=== PATIENT | female | born 1995 | race Hispanic/Latino ===

== ENCOUNTER 2020-08-26 15:17 | Emergency (ER) | payer MEDICAID, OTHER ==
[2020-08-26 15:52] LABS: APPEARANCE,URINE Clear (CLEAR); BILIRUBIN,URINE Negative (NEGATIVE); COLOR,URINE Yellow (YELLOW); GLUCOSE, URINE (UA) Negative (NEGATIVE); KETONES,URINE Negative (NEGATIVE); LEUKOCYTE ESTERASE ,URINE Negative (NEGATIVE); NITRATE,URINE Negative (NEGATIVE); OCCULT BLOOD,URINE Moderate (NEGATIVE); PROTEIN,URINE Negative (NEGATIVE); UROBILINOGEN,URINE 0.2 mg/dL (0.2-1.0)
[2020-08-26 15:57] LABS: HCG,QUAL RESULT NEGATIVE (NEGATIVE)
[2020-08-26 16:07] LABS: BASOPHILS % (AUTO) 0.9 % (0.0-5.0); EOSINOPHILS % (AUTO) 2.1 % (0.0-8.0); HEMATOCRIT 42.4 % (36-48); LYMPHOCYTES % (AUTO) 26.9 % (21.0-51.0); MEAN CORPUSCULAR HEMOGLOBIN 29.6 pg (27.0-33.0); MEAN CORPUSCULAR HGB CONC 32.3 g/dL (32.0-36.0); MEAN CORPUSCULAR VOLUME 91.6 fL (79-99); MONOCYTES % (AUTO) 8.4 % (3.0-13.0); NEUTROPHILS % (AUTO) 61.5 % (40.0-77.0); PLATELET COUNT (AUTO) 342 K/uL (130-400); RED BLOOD CELL COUNT(AUTO) 4.63 MIL/uL (4.00-5.50); RED CELL DISTRIBUTION WIDTH 12.6 % (11.0-15.5); WHITE BLOOD COUNT (AUTO) 6.6 K/uL (4.8-10.8)
[2020-08-26 16:08] LABS: BACTERIA,URINE Few /HPF (None Seen); WBC,URINE 0-1 /HPF (0-1)
[2020-08-26 16:22] LABS: CREATININE 0.8 mg/dL (0.5-1.5); POTASSIUM 3.9 mmol/L (3.5-5.1)
[2020-08-26 16:26] LABS: ALBUMIN 4.3 g/dL (3.5-5.0); BILIRUBIN,TOTAL 0.2 mg/dL (0.2-1.0)
[2020-08-26] MEDS ORDERED: KETOROLAC TROMETHAMINE 60 MG/2 ML VIAL ONE (16:40)
[2020-08-26] MEDS ORDERED: ACETAMINOPHEN EXTRA STRENGTH 500 MG TABLET ONE (16:44)
== END 2020-08-26 17:12 | disposition home or self-care (01) ==
LOC: EDH 15:17
DX: N93.9 Abnormal uterine and vaginal bleeding, unspecified (principal); R10.2 Pelvic and perineal pain; F41.9 Anxiety disorder, unspecified; F32.9 Major depressive disorder, single episode, unspecified; Z98.890 Other specified postprocedural states
CPT/HCPCS: 36415; 80053; 81001; 81025; 85025; 99283; J1885

== ENCOUNTER → 2021-04-08 | Outpatient (CLI) | payer OTHER | END | disposition home or self-care (01) | LOC: OIH 15:28 | PROVIDERS: ATTEND Internal Medicine | DX: M54.89 Other dorsalgia (principal) | CPT/HCPCS: 72100 ==

== ENCOUNTER 2024-02-21 18:24 | Emergency (ER) | payer OTHER ==
[~2024-02-21] VITALS: Ht 157.5 cm; Wt 66.7 kg
[2024-02-21 20:00] LABS: APPEARANCE,URINE CLEAR (CLEAR); BILIRUBIN,URINE NEGATIVE (NEGATIVE); COLOR,URINE LIGHT-YELLOW (YELLOW); GLUCOSE, URINE (UA) NEGATIVE (NEGATIVE); KETONES,URINE NEGATIVE (NEGATIVE); LEUKOCYTE ESTERASE ,URINE 25 Leu/uL (NEGATIVE); NITRATE,URINE NEGATIVE (NEGATIVE); OCCULT BLOOD,URINE NEGATIVE (NEGATIVE); PROTEIN,URINE NEGATIVE (NEGATIVE); UROBILINOGEN,URINE 0.2 mg/dL (0.2-1.0)
[2024-02-21 20:04] LABS: ADD UA MICROSCOPIC YES
[2024-02-21 20:07] LABS: BACTERIA,URINE RARE /HPF (None Seen); SQUAMOUS EPITHELIAL CELL,UR RARE /HPF (0-2)
[2024-02-21 21:16] LABS: BASOPHILS # (AUTO) 0.05 K/uL (0.00-0.20); BASOPHILS % (AUTO) 0.4 % (0.0-5.0); EOSINOPHILS # (AUTO) 0.13 K/uL (0.00-0.70); EOSINOPHILS % (AUTO) 1.2 % (0.0-8.0); HEMATOCRIT 35.4 % (36-48); IMMATURE GRANULOCYTE ABSOLUTE 0.05 K/uL (0-1); LYMPHOCYTES # (AUTO) 1.7 K/uL (1.0-4.8); LYMPHOCYTES % (AUTO) 15.1 % (21.0-51.0); MEAN CORPUSCULAR HEMOGLOBIN 30.5 pg (27.0-33.0); MEAN CORPUSCULAR HGB CONC 33.1 g/dL (32.0-36.0); MEAN CORPUSCULAR VOLUME 92.2 fL (79-99); NEUTROPHILS # (AUTO) 8.2 K/uL (1.8-7.7); NEUTROPHILS % (AUTO) 73.9 % (40.0-77.0); PLATELET COUNT (AUTO) 363 K/uL (130-400); RED BLOOD CELL COUNT(AUTO) 3.84 MIL/uL (4.00-5.50); RED CELL DISTRIBUTION WIDTH 14.3 % (11.0-15.5); WHITE BLOOD COUNT (AUTO) 11.2 K/uL (4.8-10.8)
[2024-02-21 21:41] LABS: CREATININE 0.7 mg/dL (0.5-1.0); POTASSIUM 3.6 mmol/L (3.5-5.1)
[2024-02-21 21:46] LABS: ALBUMIN 3.4 g/dL (3.5-5.0); BILIRUBIN,TOTAL 0.3 mg/dL (0.2-1.0); TOTAL PROTEIN, SERUM 7.5 g/dL (6.0-8.3)
[2024-02-21] MEDS ORDERED: CEPH500T PO (22:29)
[2024-02-21] MEDS ORDERED: IBUP-1493 PO (22:30)
[2024-02-21 22:46] VITALS: BP 124/74; PULSE 90; RESP 18; O2SAT 98
== END 2024-02-21 22:48 | disposition home or self-care (01) ==
LOC: EDH 18:24
DX: N39.0 Urinary tract infection, site not specified (principal); K59.00 Constipation, unspecified; R10.9 Unspecified abdominal pain; F20.9 Schizophrenia, unspecified; F31.9 Bipolar disorder, unspecified
CPT/HCPCS: 36415; 74018; 80053; 81001; 81025; 83690; 85025; 87077; 87088; 87186

== ENCOUNTER 2025-04-15 18:39 | Emergency (ER) | payer MEDICAID ==
[~2025-04-15] VITALS: Ht 157.5 cm; Wt 84.4 kg
[~2025-04-15 18:39] MED LIST: CEPH500T PO; IBUP-1493 PO
[2025-04-15] MEDS: acetaMINOPHEN 500 MG TABLET PO ONE (19:22)
--- NOTE | 2025-04-15 19:32 | HMCIMG ---
RIGHT ANKLE RADIOGRAPHS - 3 VIEWS INDICATION: Pain COMPARISON: None FINDINGS: AP, lateral, and oblique views. No acute fracture or subluxation identified. The talar dome is intact. Ankle mortise and tibial plafond are well maintained. No significant joint effusion is present. No radiopaque foreign body noted. IMPRESSION: No evidence for fracture or dislocation.
--- NOTE | 2025-04-15 19:34 | ERN ---
ED Note History of Present Illness Stated Complaint: RT ANKLE PAIN Chief Complaint: Ankle Problem Time Seen by MD: 18:52 Time Seen by Midlevel: 18:53 Dictation: 29-year-old female presents to the emergency department due to report of having sustained an injury to the right ankle due to having a missed step causing her to twist her ankle. At this time, she rates her level of pain as a 7/10. Patient denies having sustained any other type of injury. Upon initial evaluation, the patient presents with a normal neurovascular examination. Allergies: Coded Allergies: No Known Drug Allergies (Unverified Allergy, Unknown, 08/26/20) Emergency Care [employer] OPERATOR: None Home Meds Active Scripts Ibuprofen (Motrin/Advil) 800 Mg Tab, 800 MG PO TID, #30 TAB Prov:ROSANNA RUTLEDGE MD 02/21/24 Cephalexin (Cephalexin) 500 Mg Tablet, 500 MG PO QID, #28 TAB Prov:ROSANNA RUTLEDGE MD 02/21/24 Past Medical History Past Medical History: No Pertinent History, Anxiety, Bipolar, Depression Additional Past Medical Hx: HX OF GASTRITIS, PTSD; HX OF DELGADO'S PALSY Surgical History: None Surgical History Other: D & C PSYCH History: no pertinent psych hx Social History: Negative, Lives with family Review of System Dictation MS/Extremity: Right ankle pain Initial Vital Sign VS Vital Signs Date Time Temp Pulse Resp B/P (MAP) Pulse Ox O2 Delivery O2 Flow Rate FiO2 04/15/25 19:01 98.6 16 127/68 99 Room Air 0 04/15/25 19:43 82 21 Physical Exam Dictation General: awake, alert, NAD Head/Face: Normocephalic, atraumatic Eyes: PERRL, EOMI ENT: Oral mucosa moist Neck: Trachea midline, supple Cardiovascular: RRR, no edema Respiratory: Symmetrical, non-labored Abdomen: Soft, non-tender, non-distended, no guarding. Skin: Warm, dry, good turgor, no rash MS/Extremity: Painful range of motion, swelling and tenderness of the right ankle. Normal neurovascular examination. Neuro: COAx4, GCS 15, steady gait, Psych: Normal behavior, mood, and affect normal Results (Laboratory/Radiology) X-RAY Comment: Three-view x-ray of the right ankle with no cortical anomalies as interpreted by me. ED Course ED Course Orders Procedure Category Date Status Time Ankle Comp 3vws Rt RAD 04/15/25 Resulted 18:55 Acetaminophen 500mg PHA 04/15/25 Complete Tab (Tylenol 500mg T 19:00 Current Medications Medications (Trade) Dose Ordered Sig/Jt Route PRN Reason Start Time Stop Time Status Last Admin Dose Admin Acetaminophen (TYLenol 500MG TAB) 1,000 mg ONCE ONCE PO 04/15/25 19:00 04/15/25 19:01 DC 04/15/25 19:22 Vital Signs Date Time Temp Pulse Resp B/P (MAP) Pulse Ox O2 Delivery O2 Flow Rate FiO2 04/15/25 19:43 98.4 82 18 126/70 99 Room Air* 0 21 04/15/25 19:01 98.6 16 127/68 99 Room Air 0 Medical Decision Making MDM MDM: Differential diagnosis: Right ankle sprain, right ankle contusion, right ankle fracture. Rationale: Tests considered and ordered secondary to shared decision making include: Previous outside records reviewed: Old ER visits. Risk of complication and/or morbidity or mortality of patient management: None Medications-Per medication reconciliation Need for hospitalization: Patient does not meet criteria for hospitalization. Need for emergency major/minor surgery: No There are no social concerns with this patient. Prescription drug management Prescriptions will include symptomatic care Patient's prior external medical records from other ER visits were reviewed by me as indicated. Prior testing and results from previous visits were reviewed. Prior tests were taken into account with medical decision making and resource utilization, independent historian/historians were used to obtain complete medical history. I independently interpreted the test that were performed, results were reviewed by me and considered findings on radiology if ordered. Medical management and examination interpretation discussions were had by me with other qualified healthcare professionals as indicated for the patient's care. DX & DISP Disposition: Discharge Departure Impression: Primary Impression: Right ankle sprain Condition: Stable Referrals: NKECHI GROVE MD (PCP) Time of Disposition: 19:33 DOMINGA LEBLANC Apr 15, 2025 19:34 BUSHRA CONNOR DO Apr 16, 2025 04:23
[2025-04-15 19:43] VITALS: BP 126/70; PULSE 82; RESP 18; TEMP 98.4; O2SAT 99
== END 2025-04-15 19:54 | disposition home or self-care (01) ==
LOC: EDH 18:39
DX: S93.491A Sprain of other ligament of right ankle, initial encounter (principal); Z79.1 Long term (current) use of non-steroidal anti-inflammatories (NSAID); Z98.890 Other specified postprocedural states; X50.1XXA Overexertion from prolonged static or awkward postures, initial encounter; Y93.01 Activity, walking, marching and hiking; Y92.89 Other specified places as the place of occurrence of the external cause; Y99.8 Other external cause status
CPT/HCPCS: 73610; 99283

== ENCOUNTER 2025-06-06 18:01 | Emergency (ER) | payer MEDICAID ==
[~2025-06-06] VITALS: Ht 157.5 cm; Wt 79.4 kg
[2025-06-06 18:12] VITALS: BP 130/82; PULSE 90; RESP 16; TEMP 98.2; O2SAT 98
[2025-06-06] MEDS ORDERED: CETI10TA57 PO (18:25)
--- NOTE | 2025-06-06 18:26 | ERN ---
ED Note History of Present Illness Stated Complaint: RASH Chief Complaint: Skin Rash/Abscess Time Seen by MD: 18:04 Dictation: 29-YEAR-OLD FEMALE PRESENTS TO ER WITH COMPLAINTS OF RASH TO LOWER BACK. PATIENT STATES SHE WAS DOING CLEANING AND NOTED TO HAVE ITCHINESS TO LOWER BACK AND NOTED A RASH. SINCE SHE HAS HAS HISTORY OF ALLERGY TO DUST. PATIENT ALSO STATES SHE WAS USING A BROOM WHEN IT BROKE AND IT CUT HER ABDOMEN. ABRASION NOTED TO UMBILICAL AREA. PATIENT DENIES SHORTNESS OF BREATH OR TROUBLE SWALLOWING. Allergies: Coded Allergies: No Known Drug Allergies (Unverified Allergy, Unknown, 08/26/20) Home Meds Active Scripts Cetirizine HCl (Cetirizine HCl) 10 Mg Tablet, 1 TAB PO DAILY for allergy symptoms for 30 Days, #30 TAB 0 Refills Prov:NIURKA JEROME NP 06/06/25 Ibuprofen (Motrin/Advil) 800 Mg Tab, 800 MG PO TID, #30 TAB Prov:ROSANNA RUTLEDGE MD 02/21/24 Cephalexin (Cephalexin) 500 Mg Tablet, 500 MG PO QID, #28 TAB Prov:ROSANNA RUTLEDGE MD 02/21/24 Past Medical History Past Medical History: No Pertinent History, Anxiety, Bipolar, Depression Additional Past Medical Hx: HX OF GASTRITIS, PTSD; HX OF DELGADO'S PALSY Surgical History: None Surgical History Other: D & C Social History: Negative, Lives with family Review of System Dictation CONSTITUTIONAL: NEGATIVE FOR FEVER,CHILLS, AND WEIGHT LOSS EYES: NEGATIVE FOR INJURY, PAIN,REDNESS, AND DISCHARGE ENT: NEGATIVE FOR INJURY,PAIN OR SWELLING CARDIOVASCULAR: NEGATIVE FOR CHEST PAIN, PALPITATIONS, AND EDEMA RESPIRATORY: NEGATIVE FOR SHORTNESS OF BREATH, COUGH, WHEEZING, AND PLEURITIC CHEST PAIN ABDOMEN/GI: NEGATIVE FOR ABDOMINAL PAIN, NAUSEA, VOMITING, DIARRHEA, AND CONSTIPATION BACK: NEGATIVE FOR INJURY AND PAIN : NEGATIVE FOR INJURY, BLEEDING AND DISCHARGE MS/EXTREMITY: NEGATIVE FOR INJURY AND DEFORMITY SKIN: POSITIVE FOR RASH TO LOWER BACK, ABRASION TO UMBILICAL AREA NEURO: NEGATIVE FOR HEADACHE, WEAKNESS, NUMBNESS, TINGLING, AND SEIZURE PSYCH: NEGATIVE FOR SUICIDE IDEATION, HOMICIDAL IDEATION, AND HALLUCINATIONS ALLERGY/IMMUNOLOGY: NEGATIVE FOR HIVES, RASH, AND ALLERGIES Initial Vital Sign VS Vital Signs Date Time Temp Pulse Resp B/P (MAP) Pulse Ox O2 Delivery O2 Flow Rate FiO2 06/06/25 18:02 98.4 94 18 134/85 99 Room Air 0 06/06/25 18:12 21 Physical Exam Dictation GENERAL: AWAKE, ALERT, NAD HEAD/FACE: NORMOCEPHALIC, ATRAUMATIC EYES: PERRL, EOMI, VISION AT BASELINE ENT: ORAL CAVITY CLEAR, TMS CLEAR, NO SIGNS OF INFECTION NECK: TRACHEA MIDLINE, SUPPLE, NO NUCHAL RIGIDITY CARDIOVASCULAR: RRR, NORMAL S1/S2, NO MRGS, NO JVD RESPIRATORY: CTAB, NO RESPIRATORY DISTRESS, NO RALES OR WHEEZES ABDOMEN: SOFT, NON-TENDER, NON-DISTENDED, NORMAL BOWEL SOUNDS, NO GUARDING OR REBOUND. SKIN: WARM, DRY, NORMAL TURGOR. MACULAR RASH TO LOWER BACK, DIFFUSED. ABRASION TO UMBILICAL AREA MS/EXTREMITY: PULSES EQUAL, NO CYANOSIS, NEUROVASCULAR INTACT, FROM NEURO: COAX4, GCS 15, STRENGTH 5/5, CN 2-12 INTACT, NORMAL CEREBELLAR EXAM, NORMAL GAIT, PSYCH: NORMAL BEHAVIOR, MOOD, AND AFFECT NORMAL ED Course ED Course Medical Decision Making MDM 29-YEAR-OLD FEMALE PRESENTS TO ER WITH COMPLAINTS OF RASH TO LOWER BACK. PATIENT STATES SHE WAS DOING CLEANING AND NOTED TO HAVE ITCHINESS TO LOWER BACK AND NOTED A RASH. SINCE SHE HAS HAS HISTORY OF ALLERGY TO DUST. PATIENT ALSO STATES SHE WAS USING A BROOM WHEN IT BROKE AND IT CUT HER ABDOMEN. ABRASION NOTED TO UMBILICAL AREA. PATIENT DENIES SHORTNESS OF BREATH OR TROUBLE SWALLOWING. PATIENT WILL BE GIVEN BENADRYL 25 MG IM. PATIENT WILL BE GIVEN TETANUS INJECTION. WILL BE GIVEN CETIRIZINE FOR HOME USE TO HELP WITH SYMPTOMS. PATIENT VSS, NAD, NONTOXIC, STABLE FOR DISCHARGE. PT GIVEN DISCHARGE INSTRUCTIONS IN LAYMAN TERMS AND UNDERSTOOD, ALL QUESTIONS ANSWERED. PT WILL FOLLOW UP WITH PCP AND RETURN TO THE ER IF WORSE. DX & DISP Disposition: Discharge Departure Impression: Primary Impression: Allergic reaction Additional Impressions: Rash due to allergy, Urticaria Condition: Stable Scripts Cetirizine HCl (Cetirizine HCl) 10 Mg Tablet 1 TAB PO DAILY for allergy symptoms for 30 Days, #30 TAB 0 Refills Prov: NIURKA JEROME NP 06/06/25 Additional Instructions: FOLLOW-UP WITH YOUR PCP IN 24-72 HOURS AND IN THE EVENT IF SYMPTOMS WORSEN OR AN EMERGENCY OVERNIGHT REPORT TO THE ED IMMEDIATELY Referrals: NKECHI GROVE MD (PCP) NIURKA JEROME NP Jun 06, 2025 18:26
== END 2025-06-06 18:40 | disposition home or self-care (01) ==
LOC: EDH 18:01
DX: T78.40XA Allergy, unspecified, initial encounter (principal); L50.9 Urticaria, unspecified; Z79.1 Long term (current) use of non-steroidal anti-inflammatories (NSAID); X58.XXXA Exposure to other specified factors, initial encounter
CPT/HCPCS: 99284; 90714; 96372; 90471; J1200

== ENCOUNTER 2025-09-01 16:48 | Emergency (ER) | payer MEDICAID ==
[~2025-09-01] VITALS: Ht 157.5 cm; Wt 72.6 kg
[~2025-09-01 16:48] MED LIST changes: +CETI10TA57 PO
--- NOTE | 2025-09-01 17:55 | ERN ---
ED Note History of Present Illness Stated Complaint: RT 4TH TOE INJURY Chief Complaint: Toe Pain/Injury Time Seen by MD: 16:52 Time Seen by Midlevel: 16:54 Dictation: 30-year-old female with no medical problems coming in with complaints of right for toe pain. Patient states she hit her toe on the corner of the wall yesterday. Patient states yesterday it was two the outside and cold. Patient states she moves her toe by herself completed bag in place. Allergies: Coded Allergies: No Known Drug Allergies (Unverified Allergy, Unknown, 08/26/20) Home Meds Active Scripts Cetirizine HCl (Cetirizine HCl) 10 Mg Tablet, 1 TAB PO DAILY for allergy symptoms for 30 Days, #30 TAB 0 Refills Prov:NIURKA JEROME 06/06/25 Ibuprofen (Motrin/Advil) 800 Mg Tab, 800 MG PO TID, #30 TAB Prov:ROSANNA RUTLEDGE MD 02/21/24 Cephalexin (Cephalexin) 500 Mg Tablet, 500 MG PO QID, #28 TAB Prov:ROSANNA RUTLEDGE MD 02/21/24 Past Medical History Past Medical History: No Pertinent History, Anxiety, Bipolar, Depression Additional Past Medical Hx: HX OF GASTRITIS, PTSD; HX OF DELGADO'S PALSY Surgical History: None Surgical History Other: D & C Social History: Negative, Lives with family LMP: Aug 30, 2025 Review of System Dictation Constitutional: Negative for fever,chills, and weight loss Eyes: Negative for injury, pain,redness, and discharge ENT: Negative for injury,pain or swelling Cardiovascular: Negative for chest pain, palpitations, and edema Respiratory: Negative for shortness of breath, cough, and wheezing, Abdomen/GI: Negative for abdominal pain, nausea, vomiting, diarrhea, and constipation Back: Negative for injury and pain : Negative for injury, bleeding and discharge MS/Extremity: Negative for injury and deformity, pain to the right 4th toe Skin: Negative for rash, and discoloration Neuro: Negative for headache, weakness, numbness, tingling, and seizure Psych: Negative for suicide ideation, homicidal ideation, and hallucinations Review of Systems: was completed Initial Vital Sign VS Vital Signs Date Time Temp Pulse Resp B/P (MAP) Pulse Ox O2 Delivery O2 Flow Rate FiO2 09/01/25 16:50 98.2 92 20 137/71 99 Room Air 09/01/25 16:54 0 21 Physical Exam Dictation General: awake, alert, NAD Head/Face: Normocephalic, atraumatic Eyes: PERRL, EOMI, vision at baseline ENT: oral cavity clear, TMs clear, no signs of infection Neck: Trachea midline, supple, no nuchal rigidity Cardiovascular: RRR, normal S1/S2, No MRGs, no JVD Respiratory: CTAB, no respiratory distress, No rales or wheezes Abdomen: Soft, non-tender, non-distended, normal bowel sounds, no guarding or rebound. Skin: Warm, dry, normal turgor, no rash MS/Extremity: Pulses equal, no cyanosis, neurovascular intact, FROM there is redness and mild swelling to the right 4th phalanges Neuro: COAx4, GCS 15, strength 5/5, CN 2-12 intact, normal cerebellar exam, normal gait, Psych: Normal behavior, mood, and affect normal ED Course ED Course Orders Procedure Category Date Status Time Foot Comp 3+Vws Rt RAD 09/01/25 Taken 16:53 Ketorolac PHA 09/01/25 Complete Tromethamine 15mg/Ml 17:00 Tramadol Hcl (Ultram) PHA 09/01/25 Complete 17:00 Ortho Shoe BLACK 09/01/25 In Process 17:44 Current Medications Medications (Trade) Dose Ordered Sig/Jt Route PRN Reason Start Time Stop Time Status Last Admin Dose Admin Ketorolac Tromethamine (toRADol) 15 mg ONCE ONCE IM 09/01/25 17:00 09/01/25 17:01 DC 09/01/25 17:04 Tramadol HCl (UltRAM) 50 mg ONCE ONCE PO 09/01/25 17:00 09/01/25 17:01 DC 09/01/25 17:04 Vital Signs Date Time Temp Pulse Resp B/P (MAP) Pulse Ox O2 Delivery O2 Flow Rate FiO2 09/01/25 16:54 98.2 92 20 137/71 99 Room Air* 0 21 09/01/25 16:50 98.2 92 20 137/71 99 Room Air Medical Decision Making MDM MDM: 30-year-old female with no medical problems coming in with complaints of right for toe pain. Patient states she hit her toe on the corner of the wall yesterday. Patient states yesterday it was two the outside and cold. Patient states she moves her toe by herself completed bag in place. Shows actually to the proximal phalanges. Orthopedic ordered. Patient will be discharged to follow up outpatient with the orthopedic surgeon and take Tylenol or Motrin [id number]. Differential diagnosis: Toe contusion, fracture Rationale: Tests considered and ordered secondary to shared decision making include: Previous outside records reviewed: Old ER visits. Risk of complication and/or morbidity or mortality of patient management: None Medications-Per medication reconciliation Need for hospitalization: Patient does not meet criteria for hospitalization. Need for emergency major/minor surgery: No There are no social concerns with this patient. Prescription drug management Prescriptions will include symptomatic care Patient's prior external medical records from other ER visits were reviewed by me as indicated. Prior testing and results from previous visits were reviewed. Prior tests were taken into account with medical decision making and resource utilization, independent historian/historians were used to obtain complete medical history. I independently interpreted the test that were performed, results were reviewed by me and considered findings on radiology if ordered. Medical management and examination interpretation discussions were had by me with other qualified healthcare professionals as indicated for the patient's care. DX & DISP Disposition: Discharge Departure Impression: Primary Impression: Toe fracture, right Condition: Stable Additional Instructions: Follow up with the orthopedic surgeon. Take Tylenol or Motrin [id number] for pain control. Referrals: NKECHI GROVE MD (PCP) CELSO SANCHEZ MD Time of Disposition: 17:54 I have reviewed the case, and I agree with, Diagnosis and Plan TAPAN DE LOS SANTOS CNP Sep 01, 2025 17:55
[2025-09-01 18:13] VITALS: BP 105/71; PULSE 75; RESP 12; TEMP 98.6; O2SAT 99
--- NOTE | 2025-09-01 18:36 | HMCIMG ---
EXAM: CR right foot, 3 View. CLINICAL HISTORY: 4th toe injury COMPARISON: None provided. FINDINGS: Mildly displaced oblique fracture of the mid aspect of the fourth proximal phalanx. Joint spaces remain anatomically aligned. Fourth toe soft tissue edema. IMPRESSION: 1. Mildly displaced oblique fracture of the mid fourth proximal phalanx with associated soft tissue edema. /[place]
== END 2025-09-01 18:19 | disposition home or self-care (01) ==
LOC: EDH 16:48
DX: S92.511A Displaced fracture of proximal phalanx of right lesser toe(s), initial encounter for closed fracture (principal); Z79.1 Long term (current) use of non-steroidal anti-inflammatories (NSAID); Z87.19 Personal history of other diseases of the digestive system; W22.01XA Walked into wall, initial encounter; Y93.89 Activity, other specified; Y92.89 Other specified places as the place of occurrence of the external cause; Y99.8 Other external cause status
CPT/HCPCS: 99283; 73630; 96372; J1885